=== PATIENT | male | born 1985 | race Caucasian/White ===

== ENCOUNTER 2018-04-02 08:02 | Emergency (ER) | payer BC ==
[~2018-04-02] VITALS: Wt 99.8 kg
[2018-04-02] MEDS ORDERED: PENICILLIN250 MG PO (08:06)
== END 2018-04-02 09:50 | disposition home or self-care (01) ==
LOC: ED 08:02
DX: S86.911A Strain of unspecified muscle(s) and tendon(s) at lower leg level, right leg, initial encounter (principal); Z79.2 Long term (current) use of antibiotics; X58.XXXA Exposure to other specified factors, initial encounter; Y93.89 Activity, other specified; Y92.89 Other specified places as the place of occurrence of the external cause; Y99.8 Other external cause status

== ENCOUNTER → 2022-03-17 | Outpatient (CLI) | payer BC ==
[~2022-03-17] MED LIST: PENICILLIN250 MG PO
[2022-03-17 11:57] LABS: BASO # 0.1 10*3/uL (0.0-0.1); BASO % 0.6 % (0.0-1.0); EOS # 0.1 10*3/uL (0.0-0.4); EOS % 0.9 % (1.0-4.0); LYMPH # 1.8 10*3/uL (1.3-4.4); LYMPH % 18.6 % (27.0-41.0); MEAN CELL VOLUME 85.1 fl (80.0-94.0); MEAN CORPUSCULAR HGB 29.5 pg (27.0-31.0); MEAN CORPUSCULAR HGB CONC 34.7 g/dl (33.0-37.0); MEAN PLATELET VOLUME 12.6 fl (9.6-12.3); MONO # 0.7 10*3/uL (0.1-1.0); NEUT % 72.7 % (47.0-73.0); PLATELET COUNT AUTOMATED 208 10*3/uL (130-400); RED BLOOD COUNT 6.23 10*6/uL (4.50-5.90); RED CELL DISTRI WIDTH 11.9 % (0-14.5); RETICULOCYTE % 1.11 % (0.50-2.50); WHITE BLOOD COUNT 9.6 10*3/uL (4.8-10.8)
[2022-03-17 11:58] LABS: BILIRUBIN Negative (Negative); BLOOD Negative (Negative); CLARITY Clear (Clear); COLOR Yellow (Yellow); GLUCOSE 3+ (Negative); KETONE 2+ (Negative); LEUKO ESTERASE Negative (Negative); NITRITE Negative (Negative); SPECIFIC GRAVITY >= 1.030 (1.001-1.030); UROBILINOGEN 0.2 E.U./dl (0.0-1.0)
[2022-03-17 12:13] LABS: RBC 0-2 rbc/hpf (0-2); WBC 0-2 wbc/hpf (0-5)
[2022-03-17 12:30] LABS: ALKALINE PHOSPHATASE 72 U/L (45-117); BUN 17 mg/dl (7-24); CHLORIDE 106 mmol/L (98-107); CHOLESTEROL 182 mg/dL (<200); CREATININE 0.92 mg/dL (0.70-1.30); GAMMA GLUTAMYL TRANSPEPTIDASE 14 U/L (15-85); IRON 58 ug/dL (65-175); LDL CHOLESTEROL 95 mg/dL (9-159); POTASSIUM 4.1 mmol/L (3.5-5.1); SGOT/AST 10 IU/L (3-35); SGPT/ALT 25 U/L (12-78); SODIUM 138 mmol/L (136-145); THYROXINE (T4) TOTAL 8.1 ug/dl (4.5-12.1); TOTAL PROTEIN 7.2 gm/dL (6.4-8.2); TRIGLYCERIDES 171 mg/dl (<150); URIC ACID 3.5 mg/dL (3.5-7.2)
[2022-03-17 12:36] LABS: T3 UPTAKE 35 % (31-39); THYROID STIM HORMONE (HS) 0.777 uIU/ml (0.358-4.75)
[2022-03-17 12:42] LABS: VITAMIN D, 25-HYDROXY 18.8 ng/mL (30-100)
[2022-03-17 12:43] LABS: FERRITIN 225.2 ng/mL (22.0-322.0)
[2022-03-18 04:06] LABS: RHEUMATOID FACTOR <10.0 IU/mL (<14.0)
[2022-03-18 15:07] LABS: ANTI-DSDNA ANTIBODIES 3 IU/mL (0-9)
== END | disposition home or self-care (01) ==
LOC: LAB 10:44
PROVIDERS: ATTEND Family Medicine
DX: E78.5 Hyperlipidemia, unspecified (principal); E55.9 Vitamin D deficiency, unspecified; R79.89 Other specified abnormal findings of blood chemistry; R53.83 Other fatigue; R74.8 Abnormal levels of other serum enzymes

== ENCOUNTER → 2023-09-14 | Emergency (ER) | payer BC ==
[~2023-09-14] VITALS: Ht 177.8 cm; Wt 81.6 kg
[~2023-09-14] MED LIST changes: +ASPIRIN, CHEWABLE 81 MG TAB PO ONE; +HEPARIN SODIUM 250 ML IV SCH; +Metoprolol Tartrate 5 MG/5 ML VIAL IV ONE; +NITROGLYCERIN 0.4 MG BOT SL ONE; +TICAGRELOR 90 MG TABLET PO ONE
[2023-09-14 10:51] LABS: BASO % 0.5 % (0.0-1.0); EOS # 0.2 10*3/uL (0.0-0.4); EOS % 1.8 % (1.0-4.0); HEMATOCRIT 50.8 % (42.0-52.0); MEAN CELL VOLUME 84.9 fl (80.0-94.0); MEAN CORPUSCULAR HGB 28.9 pg (27.0-31.0); MEAN CORPUSCULAR HGB CONC 34.1 g/dl (33.0-37.0); MEAN PLATELET VOLUME 11.6 fl (9.6-12.3); MONO # 0.6 10*3/uL (0.1-1.0); MONO % 7.8 % (3.0-9.0); NEUT # 5.4 10*3/uL (2.3-7.9); NEUT % 65.7 % (47.0-73.0); PLATELET COUNT AUTOMATED 164 10*3/uL (130-400); RED BLOOD COUNT 5.98 10*6/uL (4.50-5.90); RED CELL DISTRI WIDTH 12.1 % (0-14.5); WHITE BLOOD COUNT 8.2 10*3/uL (4.8-10.8)
[2023-09-14 11:04] LABS: ACT PARTIAL THROMBO TIME 28.4 SECONDS (20.0-32.1)
[2023-09-14 11:18] LABS: ALKALINE PHOSPHATASE 81 U/L (46-116); BUN 16 mg/dl (9-23); CHLORIDE 103 mmol/L (98-107); POTASSIUM 4.6 mmol/L (3.4-5.1); SGPT/ALT 33 U/L (5-49)
== END ==
LOC: ED 10:04
PROVIDERS: Internal Medicine
DX: I21.3 ST elevation (STEMI) myocardial infarction of unspecified site (principal); Z86.718 Personal history of other venous thrombosis and embolism

== ENCOUNTER 2023-11-26 12:30 | Emergency (ER) | payer BC ==
[~2023-11-26] VITALS: Ht 177.8 cm; Wt 85.7 kg
[~2023-11-26 12:30] MED LIST changes: -ASPIRIN, CHEWABLE 81 MG TAB PO ONE; -HEPARIN SODIUM 250 ML IV SCH; -Metoprolol Tartrate 5 MG/5 ML VIAL IV ONE; -NITROGLYCERIN 0.4 MG BOT SL ONE; -TICAGRELOR 90 MG TABLET PO ONE
[2023-11-26 12:54] LABS: BASO % 0.6 % (0.0-1.0); EOS # 0.2 10*3/uL (0.0-0.4); EOS % 2.3 % (1.0-4.0); HEMATOCRIT 50.6 % (42.0-52.0); LYMPH # 2.1 10*3/uL (1.3-4.4); LYMPH % 30.4 % (27.0-41.0); MEAN CELL VOLUME 86.5 fl (80.0-94.0); MEAN CORPUSCULAR HGB 29.1 pg (27.0-31.0); MEAN CORPUSCULAR HGB CONC 33.6 g/dl (33.0-37.0); MEAN PLATELET VOLUME 10.9 fl (9.6-12.3); MONO # 0.6 10*3/uL (0.1-1.0); MONO % 8.7 % (3.0-9.0); NEUT # 4.1 10*3/uL (2.3-7.9); NEUT % 57.9 % (47.0-73.0); PLATELET COUNT AUTOMATED 177 10*3/uL (130-400); RED BLOOD COUNT 5.85 10*6/uL (4.50-5.90); RED CELL DISTRI WIDTH 12.8 % (0-14.5); WHITE BLOOD COUNT 7.1 10*3/uL (4.8-10.8)
[2023-11-26 13:06] LABS: ACT PARTIAL THROMBO TIME 26.5 SECONDS (20.0-32.1)
[2023-11-26 13:13] LABS: BUN 20 mg/dl (9-23); CHLORIDE 106 mmol/L (98-107); LIPASE 76 U/L (12-53); POTASSIUM 4.4 mmol/L (3.4-5.1)
== END 2023-11-26 14:15 | disposition home or self-care (01) ==
LOC: ED 12:30
PROVIDERS: Physician Assistant Medical
DX: R07.89 Other chest pain (principal); I10 Essential (primary) hypertension; E11.9 Type 2 diabetes mellitus without complications; I25.2 Old myocardial infarction; Z86.718 Personal history of other venous thrombosis and embolism

== ENCOUNTER 2024-12-27 12:49 | Emergency (ER) | payer OTHER, BC ==
[~2024-12-27] VITALS: Ht 175.2 cm; Wt 78.5 kg
[2024-12-27] MEDS ORDERED: MOUNJARO7.5 MG/0.1 SQ (13:00)
[2024-12-27] MEDS ORDERED: ASPIRIN ADULT L81 M1 PO (13:00)
[2024-12-27] MEDS ORDERED: PRASUGREL HCL10 MG PO (13:00)
[2024-12-27] MEDS ORDERED: ALDACTONE25 MG PO (13:00)
[2024-12-27] MEDS ORDERED: ATORVASTATIN CA40 M1 PO (13:00)
[2024-12-27] MEDS ORDERED: LANTUS SOL100 UNIT/1 SC (13:00)
[2024-12-27] MEDS ORDERED: METOPROLOL SUCC50 M1 PO (13:01)
[2024-12-27] MEDS ORDERED: ENTRESTO 24 MG1 EACH PO (13:03)
[2024-12-27] MEDS ORDERED: MELOXICAM15 MG PO (14:59)
== END 2024-12-27 15:03 | disposition home or self-care (01) ==
LOC: ED 12:49
DX: S90.31XA Contusion of right foot, initial encounter (principal); I25.2 Old myocardial infarction; Z79.4 Long term (current) use of insulin; Z79.899 Other long term (current) drug therapy; Z79.82 Long term (current) use of aspirin; V98.8XXA Other specified transport accidents, initial encounter; Y93.89 Activity, other specified; Y92.89 Other specified places as the place of occurrence of the external cause; Y99.0 Civilian activity done for income or pay